=== PATIENT | male | born 1995 | race Caucasian/White ===

== ENCOUNTER 2017-08-23 04:47 | Emergency (ER) | payer OTHER ==
[2017-08-23] MEDS: NORCO, ANEXSIA 5/325MG TABLET (HYDROcodone/ACETAMINOPHEN) PO (06:52)
== END 2017-08-23 16:28 | disposition home or self-care (01) ==
LOC: M ED 04:47
DX: M54.42 Lumbago with sciatica, left side (principal); Z79.899 Other long term (current) drug therapy
CPT/HCPCS: 72148

== ENCOUNTER → 2017-10-06 | Outpatient (CLI) | payer OTHER ==
[~2017-10-06] MED LIST: PROHANCE 279.3MG/ML 15ML VIAL (A9576) As Ordered
== END ==
LOC: M RAD 17:43
DX: R20.0 Anesthesia of skin (principal); M51.24 Other intervertebral disc displacement, thoracic region; M51.36 Other intervertebral disc degeneration, lumbar region
CPT/HCPCS: A9576

== ENCOUNTER → 2017-10-07 | Outpatient (REF) | payer OTHER ==
[2017-10-07 13:32] LABS: ERYTHROCYTE SEDIMENTATION RATE 2 mm/hr (0-15)
[2017-10-07 13:40] LABS: VITAMIN B12 LEVEL 462 PG/ML
[2017-10-07 13:41] LABS: FOLATE 18.1 NG/ML
[2017-10-07 13:52] LABS: FREE T4 1.05 NG/DL (0.76-1.46); RHEUMATOID FACTOR QUANT < 10.0 IU/ML (<15.0); TOTAL PROTEIN 7.5 GM/DL (6.4-8.2)
[2017-10-07 14:38] LABS: ESTIMATED AVERAGE GLUCOSE 105 MG/DL (60-110); HEMOGLOBIN A1c 5.3 %
[2017-10-10 13:52] LABS: ALBUMIN 4.69 GM/DL (3.29-5.55); ALBUMIN % 62.5 % (55.8-66.1); ALPHA-1-GLOBULIN % 3.4 % (2.9-4.9); ALPHA-1-GLOBULINS 0.26 GM/DL (0.17-0.41); ALPHA-2-GLOBULINS 0.58 GM/DL (0.42-0.99); ALPHA-2-GLOBULINS % 7.7 % (7.1-11.8); BETA-1-GLOBULINS 0.41 GM/DL (0.28-0.60); BETA-1-GLOBULINS % 5.5 % (4.7-7.2); BETA-2-GLOBULINS 0.33 GM/DL (0.19-0.55); BETA-2-GLOBULINS % 4.4 % (3.2-6.5); GAMMA GLOBULIN % 16.5 % (11.1-18.8); GAMMA GLOBULINS 1.24 GM/DL (0.65-1.58)
[2017-10-11 10:42] LABS: DRVV SCREEN 39.6 SEC
[2017-10-13 08:11] LABS: ANTINUCLEAR ANTIBODIES DIRECT Negative (Negative); Lyme Disease IgG/IgM Antibodie <0.91 ISR (0.00-0.90); Lyme Disease IgM Ab Quantitati <0.80 index (0.00-0.79); VITAMIN B1 LEVEL WHOLE BLOOD 122.9 nmol/L (66.5-200.0); VITAMIN B6,PYRIDOXAL PHOSPHATE 8.6 ug/L (5.3-46.7); VITAMIN E(ALPHA TOCOPHEROL) 7.5 mg/L (5.9-19.4); VITAMIN E(GAMMA TOCOPHEROL) 1.3 mg/L (0.7-4.9)
== END ==
LOC: M LABNEURO 12:01
DX: G37.9 Demyelinating disease of central nervous system, unspecified (principal); G62.9 Polyneuropathy, unspecified
CPT/HCPCS: 82746

== ENCOUNTER 2019-09-18 08:42 | Emergency (ER) | payer OTHER ==
[~2019-09-18 08:42] MED LIST changes: +CYCL-707 PO; +HYDR-3715 PO; +NAPR-885 PO; -PROHANCE 279.3MG/ML 15ML VIAL (A9576) As Ordered
[2019-09-18] MEDS ORDERED: NS 1,000 ML IV ONE (09:00)
[2019-09-18 09:27] LABS: BASO % 0.3 % (0.0-1.0); EOS % 0.5 % (0.0-3.0); HEMATOCRIT 44.5 % (42.0-52.0); HEMOGLOBIN 15.4 g/dl (13.5-17.5); LYMPH # 1.3 10^3/uL (1.5-5.0); LYMPH % 21.7 % (24.0-44.0); MEAN CORPUSCULAR HGB CONC 34.6 g/dl (32.0-36.5); MEAN CORPUSCULAR VOLUME 92.3 fl (80.0-96.0); MONO # 0.5 10^3/uL (0.0-0.8); MONO % 8.4 % (0.0-5.0); NEUTROPHILS # 4.2 10^3/uL (1.5-8.5); NEUTROPHILS % 68.8 % (36.0-66.0); PLATELET COUNT, AUTOMATED 198 10^3/uL (150-450); RED BLOOD COUNT 4.82 10^6/uL (4.30-6.10); WHITE BLOOD COUNT 6.1 10^3/uL (4.0-10.0)
[2019-09-18 10:08] LABS: ALBUMIN 3.6 GM/DL (3.2-5.2); ALT/SGPT 15 U/L (12-78); BILIRUBIN,DIRECT < 0.1 MG/DL (0.0-0.2); BILIRUBIN,TOTAL 0.3 MG/DL (0.2-1.0); CPK CREATINE PHOSPHOKINASE 127 U/L (39-308); TOTAL PROTEIN 6.8 GM/DL (6.4-8.2)
[2019-09-18 10:32] LABS: INR 1.12; PROTHROMBIN TIME 14.1 SECONDS (11.8-14.0)
--- NOTE | 2019-09-18 12:26 | REP ---
CHEST, PORTABLE: There is no evidence of acute infiltrate. No pleural effusion is seen. The heart is normal in size. The mediastinal silhouette is unremarkable. The visualized osseous structures are intact. IMPRESSION: No acute pulmonary disease. Electronically Signed by Uli Alvarez MD 09/18/2019 07:37 P
[2019-09-18] MEDS ORDERED: ISOVUE-370 76% 100ML VIAL As Ordered ONE (13:22)
[2019-09-18 14:30] VITALS: BP 117/61
[2019-09-18] MEDS ORDERED: FLOM0.4C39 PO (14:32)
[2019-09-18] MEDS ORDERED: TAMSULOSIN 0.4 MG CAP PO ONE (14:45)
--- NOTE | 2019-09-18 23:27 | REP ---
REASON: Urinary retention. PRIORS: None. CONTRAST: 100 mL [id number]. Lung bases are clear. The liver, gallbladder, spleen, pancreas, adrenal glands, and kidneys are within normal limits. The abdominal aorta and para-aortic regions are within normal limits. Limited evaluation of the intra-abdominal bowel loops and their mesenteries shows no abnormalities. Evaluation of the pelvic bowel loops shows mild spiking of the small bowel mesentery, potentially tethered to the urinary bladder. There is a Horowitz balloon catheter within the urinary bladder, decompressing it. Air densities are seen in the urinary bladder, but likely secondary to recent instrumentation. No free fluid or free air is seen in the pelvis. There is no evidence of an intra-abdominal or intrapelvic mass or adenopathy. Bone window technique throughout the examination shows the osseous structures to be within normal limits. IMPRESSION: Limited evaluation of the bowel loops shows possible changes in the pelvic small bowel mesentery from inflammatory bowel disease. This should be correlated clinically with appropriate followup. CT enterography should be considered with GI consult. I cannot rule out the possibility of cysto-enteric fistula. Electronically Signed by Bean Mart DO 09/19/2019 09:26 A
--- NOTE | 2019-09-19 07:54 | ECGEPIP ---
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
--- NOTE | 2019-09-20 15:11 | ED PDOC ---
Post-Departure Follow-Up [facility] fax[place] formal [place] [facility] [place]zy Elias MD Sep 20, 2019 15:11
== END 2019-09-18 15:03 | disposition home or self-care (01) ==
LOC: EDBD 08:42 → M ED 08:42
DX: R33.9 Retention of urine, unspecified (principal); J02.9 Acute pharyngitis, unspecified; R50.9 Fever, unspecified
CPT/HCPCS: 51702; 71045; 74177; 80047; 80076; 81001; 81002; 82550; 83605; 84443; 84484; 85025; 85610; 87040; 87486; 87581; 87633; 87798; 93005; 93041; 94760; 96360; 99285; Q9967